=== PATIENT | male | born 1990 | race Two or more races ===

== ENCOUNTER 2023-09-22 00:29 | Emergency (ER) | payer BC, OTHER ==
[~2023-09-22] VITALS: Ht 165.1 cm; Wt 80.9 kg
[2023-09-22 01:18] LABS: Urine Bacteria None Seen /hpf (None Seen)
[2023-09-22 01:26] LABS: Urine Blood TRACE /uL (Negative); Urine Clarity Clear (Clear); Urine Color Colorless (Yellow); Urine Protein, UAD Negative (Negative); Urine Specific Gravity 1.006 (1.001-1.035); Urine Urobilinogen Normal (Negative); Urine WBC 1 /hpf (0 - 3)
[2023-09-22 01:37] LABS: INR 1.05 (0.9-1.15); Prothrombin Time 11.1 sec (9.3-11.8)
[2023-09-22 01:58] LABS: Basophils # (auto) 0.1 10 ^3/uL (0-0.2); Basophils % (auto) 0.7 % (0.0-2.0); Eosinophils # (auto) 0.3 10 ^3/uL (0-0.8); Eosinophils % (auto) 3.4 % (0.0-7.0); Hematocrit 45.5 % (41.0-53.0); Hemoglobin 15.2 g/dL (13.5-17.5); Lymphocytes # (auto) 2.5 10 ^3/uL (0.4-5.4); Lymphocytes % (auto) 25.6 % (10.0-50.0); Mean Corpuscular Hemoglobin 28.6 pg (28.0-32.0); Mean Corpuscular Hgb Conc. 33.3 g/dL (32.0-36.0); Monocytes # (auto) 0.6 10 ^3/uL (0-1.3); Monocytes % (auto) 5.8 % (0.0-12.0); Neutrophils # (auto) 6.4 10 ^3/uL (1.6-8.6); Neutrophils % (auto) 64.5 % (37.0-80.0); Red Blood Cells 5.29 10^6/uL (4.5-5.90); Red Cell Distribution Width 13.6 % (11.8-14.3); White Blood Cell 9.9 10^3/uL (4.4-10.8)
[2023-09-22 02:08] LABS: Chloride 110 mmol/L (98-107); Potassium 3.8 mmol/L (3.5-5.1); Sodium 142 mmol/L (136-145)
[2023-09-22 02:09] LABS: Anion Gap 5 (5-15); Carbon Dioxide 27 mmol/L (20-30)
[2023-09-22 02:10] LABS: Calcium 9.1 mg/dL (8.7-10.4)
[2023-09-22 02:14] LABS: Glucose 124 mg/dL (74-106)
[2023-09-22 02:15] LABS: Blood Urea Nitrogen 12 mg/dL (9-23)
[2023-09-22 03:30] VITALS: PULSE 74; RESP 11; O2SAT 96
[2023-09-22] MEDS: MORPHINE SULFATE 4 MG/ML SYR/VIAL IV ONE (03:57)
[2023-09-22] MEDS: ONDANSETRON HCL 4 MG/2 ML VIAL IV ONE ×2 (03:57→05:57)
[2023-09-22] MEDS: HYDROmorphone HCL 2 MG/ML VL/or syr IV ONE (05:57)
[2023-09-22 06:49] VITALS: BP 99/61; PULSE 73; RESP 11; TEMP 97.7; O2SAT 96
== END 2023-09-22 03:53 | disposition home or self-care (01) ==
LOC: ER 00:29
DX: S39.840A Fracture of corpus cavernosum penis, initial encounter (principal); J45.909 Unspecified asthma, uncomplicated; X58.XXXA Exposure to other specified factors, initial encounter; Y93.89 Activity, other specified; Y92.89 Other specified places as the place of occurrence of the external cause; Y99.8 Other external cause status
CPT/HCPCS: 36415; 80048; 81001; 85025; 85610; 85730; 96374; 96375; 96376; 99285; J1170; J2270; J2405

== ENCOUNTER 2024-10-10 11:48 | Emergency (ER) | payer BC ==
[~2024-10-10] VITALS: Ht 165.1 cm; Wt 74.7 kg
[2024-10-10 13:36] VITALS: BP 128/78; PULSE 64; RESP 18; TEMP 98.1; O2SAT 97
--- NOTE | 2024-10-10 13:46 | ED.PDOC ---
History of Present Illness HPI Comments A 34 year old male presents to the ED c/o anxiety. Patient states he began to feel anxious and shaky today while he was at home. Patient notes that he has been under a lot of stress recently due to losing his job and having it go to court multiple times which has been worsening his anxiety. Denies SI, HI, fever, SOB, chest pain, abdominal pain, nausea, vomiting, diarrhea, headache, dizziness, vision changes, or numbness/tingling of extremities. No other symptoms or modifying factors reported at this time. Patient is alert and oriented x4 and has a stable gait. Chief Complaint: Anxiety Time Seen by MD: 12:03 Primary Care Provider: NONE Reviewed Notes: Nurses Notes, Medications, Allergies Allergies: Coded Allergies: NO KNOWN ALLERGIES (Unverified , 09/22/23) Home Meds Active Scripts Hydroxyzine Hcl (Hydroxyzine Hcl) 25 Mg Tab, 1 TAB PO TIDP PRN, #14 TAB 0 Refills Prov:AJAY ALVARADO NP 10/10/24 Information Source: Patient Mode of Arrival: Ambulatory Severity: Moderate Timing: Hours Duration: Since onset, Hours Prehospital treatment: None Medication Refill: For: Other (Anxiety) Past Medical History PAST MEDICAL HISTORY: Asthma Surgical History: Denies all surgeries Family History Family History: Reviewed,noncontributory to illness Social History Smoker: Non-Smoker Alcohol: Denies ETOH Use Drugs: Denies Drug Use Lives In: Home Constitutional: denies: chills, diaphoresis, fatigue, fever, malaise, sweats, weakness, others EENTM: denies: blurred vision, double vision, ear bleeding, ear discharge, ear drainage, ear pain, ear ringing, eye pain, eye redness, hearing loss, mouth pain, mouth swelling, nasal discharge, nose bleeding, nose congestion, nose pain, photophobia, tearing, throat pain, throat swelling, voice changes, others Respiratory: denies: cough, hemoptysis, orthopnea, SOB at rest, shortness of breath, SOB with excertion, stridor, wheezing, others Cardiovascular: denies: chest pain, dizzy spells, diaphoresis, Dyspnea on exertion, edema, irregular heart beat, left arm pain, lightheadedness, palpitations, PND, syncope, others Gastrointestinal: denies: abdomen distended, abdominal pain, blood streaked bowels, constipated, diarrhea, dysphagia, difficulty swallowing, hematemesis, melena, nausea, poor appetite, poor fluid intake, rectal bleeding, rectal pain, vomiting, others Genitourinary: denies: burning, dysuria, flank pain, frequency, hematuria, incontinence, penile discharge, penile sore, pain, testicle pain, testicle swelling, urgency, others Neurological: denies: dizziness, fainting, headache, left sided numbness, left sided weakness, numbness, paresthesia, pre-existing deficit, right sided numbness, right sided weakness, seizure, speech problems, tingling, tremors, weakness, others Musculoskeletal: denies: back pain, gout, joint pain, joint swelling, muscle pain, muscle stiffness, neck pain, others Integumetry: denies: bruises, change in color, change in hair/nails, dryness, laceration, lesions, lumps, rash, wounds, others Allergic/Immunocompromised: denies: Difficulty Healing, Frequent Infections, Hives, Itching, others Hematologic/Lymphatic: denies: anemia, blood clots, easy bleeding, easy bruising, swollen glands, others Endocrine: denies: excessive hunger, excessive sweating, excessive thirst, excessive urination, flushing, intolerance to cold, intolerance to heat, unexplained weight gain, unexplained weight loss, others Psychiatric: reports: anxiety; denies: bipolar disorder, depression, hopeless, panic disorder, schizophrenia, sleepless, suicidal, others All Other Systems: Reviewed and Negative Physical Exam General Appearance: Mild Distress, Normal HEENT: Normal ENT Inspection, Pharynx Normal, TMs Normal Neck: Full Range of Motion, Non-Tender, Normal, Normal Inspection Respiratory: Chest Non-Tender, Lungs Clear, No Accessory Muscle Use, No Respiratory Distress, Normal Breath Sounds Cardiovascular: No Edema, No JVD, No Murmur, No Gallop, Normal Peripheral Pulses, Regular Rate/Rhythm Breast Exam: Deferred Gastrointestinal: No Organomegaly, Non Tender, No Pulsatile Mass, Normal Bowel Sounds, Soft Genitalia: Deferred Pelvic: Deferred Rectal: Deferred Extremities: No calf tenderness, Normal capillary refill, Normal inspection, Normal range of motion, Non-tender, No pedal edema Musculoskeletal : Apperance: Normal Neurologic: Alert, lay up operator II-XII nml as Tested, No Motor Deficits, Normal Affect, No Sensory Deficits, Other (Anxious) Cerebellar Function: Normal Reflexes: Normal Skin: Dry, Normal Color, Warm Lymphatic: No Adenopathy Was a procedure done? Was a procedure done?: No Differential Dx Considerations may include: Anxiety reaction, hyperventilation syndrome, well check X-Ray, Labs, Meds, VS Vital Signs Date Time Temp Pulse Resp B/P (MAP) Pulse Ox O2 Delivery O2 Flow Rate FiO2 10/10/24 13:36 98.1 70 18 128/78 (95) 97 98.1 10/10/24 13:36 64 18 97 Room Air 10/10/24 11:58 97.3 80 16 138/76 (96) 98 97.3 Current Medications Medications (Trade) Dose Ordered Sig/Kandi Route Start Time Stop Time Status Last Admin Lorazepam (Ativan Inj) 0.5 mg ONCE ONCE IM 10/10/24 13:30 10/10/24 13:31 DC 10/10/24 13:52 X-Ray, Labs, Meds, VS Comment A 34 year old male presents to the ED c/o anxiety that started today when he woke up. Patient arrives alert and oriented, ABC's intact, afebrile, vital signs stable, saturating well in room air Signs and symptoms are most consistent with anxiety. There appears to be no evidence of cardiac disease or arrhythmia. No evidence of hypoxia or pulmonary process. VSS. Diagnostic imaging ordered by me and results interpreted by radiology: None Labs ordered: None Patient was given: Ativan 0.5 mg IM. Tolerated medications with no adverse reaction. History and physical consistent panic attack After reassessing patient. Symptoms improved significantly Vital signs stable May consider brown paper bag or facemask for rebreathing. Discussed lifestyle modification Getting enough sleep/meditating/staying active and exercising/eating healthy diet Lifestyle changes can be an effective way to relieve some of the stress and anxiety patient may cope with everyday. Most of the natural remedies consist of caring for the body, participating in healthy activities, and eliminating unhealthy ones Provided patient with mental health information and encouraged patient to speak with the therapist and psychologist Patient denies suicidal/homicidal ideation and auditory/visual hallucination Advised patient to notify a provider call urgent mental health services if symptoms recur or worsen Patient verbalized understanding Additional MDM Review of External, Non-ED records: External records reviewed. Discussion with independent historian (EMS, family) history obtained from the patient/parents (if applicable) at bedside Chronic conditions affecting care: None Social determinants of health affecting care: None Consideration of admission (observation or admission): I considered escalation of care to admission for this patient, however given the reassuring workup, the patient is safe for outpatient management. Discussion with the Radiology: No Tests considered but not performed: none Prescription medication considered and given: Vistaril 25 mg TID Time of 1ST Reevaluation: 14:00 Reevaluation 1ST: Improved Patient Education/Counseling: Diagnosis, Treatment, Need For Follow Up Family Education/Counseling: Diagnosis, Treatment, Need For Follow Up Departure 1 Departure Time of Disposition: 14:49 Impression: Primary Impression: Adjustment disorder Qualified Codes: F43.22 - Adjustment disorder with anxiety Disposition: 01 HOME / SELF CARE / HOMELESS Condition: Stable Additional Instructions: Follow-up with PCP in 1-2 days. Take medications as prescribed. Return to ED for any new or worsening symptoms. e-Prescriptions Hydroxyzine Hcl (Hydroxyzine Hcl) 25 Mg Tab 1 TAB PO TIDP PRN, #14 TAB 0 Refills Prov: AJAY ALVARADO NP 10/10/24 Discharged With: Self Critical Care Note Critical Care Time?: No Stability Stability form required: No Heart Score Heart Score: Heart Score Response (Comments) Value History N/A 0 EKG N/A 0 Age N/A 0 Risk Factors N/A 0 Troponin N/A 0 Total 0 I personally scribed for AJAY ALVARADO [employer] LOAN INTERVIEWER (JOSE ELIAS) on 10/10/24 at 13:46. Electronically submitted by Fabian Poole ([employer]). I personally scribed for AJAY ALVARADO M[employer] LOAN INTERVIEWER (JOSE ELIAS) on 10/10/24 at 13:52. Electronically submitted by Fabian Poole ([employer]). I personally scribed for AJAY ALVARADO NP ([facility]) on 10/10/24 at 15:00. Electronically submitted by Fabian Poole ([employer]). AJAY ALVARADO NP Oct 10, 2024 13:46
[2024-10-10] MEDS: LORazepam 2MG/ML-1ML VIAL IM ONE (13:52)
[2024-10-10] MEDS ORDERED: HYDR-3682 PO (14:49)
== END 2024-10-10 14:54 | disposition home or self-care (01) ==
LOC: ER 11:48
DX: F43.22 Adjustment disorder with anxiety (principal); J45.909 Unspecified asthma, uncomplicated
CPT/HCPCS: 96372; 99283; J2060

== ENCOUNTER 2025-03-04 08:37 | Outpatient (CLI) | payer BC ==
[~2025-03-04 08:37] MED LIST: HYDR-3682 PO
[2025-03-04 08:58] LABS: Hematocrit 44.7 % (41.0-53.0); Hemoglobin 15.1 g/dL (13.5-17.5); Mean Corpuscular Hemoglobin 28.5 pg (28.0-32.0); Mean Corpuscular Volume 84.6 fL (80.0-100.0); Nucleated Red Blood Cells % 0.1 %
[2025-03-04 09:49] LABS: Alanine Aminotransferase 23 U/L (7-40); Albumin 4.4 g/dL (3.2-4.8); Alkaline Phosphatase 84 U/L (46-116); Anion Gap 8 (5-15); BUN/Creatinine Ratio 15.4 (10.0-20.0); Bilirubin, Total 0.3 mg/dL (0.2-1.0); Blood Urea Nitrogen 12 mg/dL (9-23); Calcium 9.1 mg/dL (8.7-10.4); Carbon Dioxide 27 mmol/L (20-31); Chloride 106 mmol/L (98-107); Cholesterol 126 mg/dL (< 200); HDL Cholesterol 53 mg/dL (40-59); Potassium 4.7 mmol/L (3.5-5.1); Sodium 141 mmol/L (136-145); Total Protein 6.9 g/dL (5.7-8.2); Triglycerides 95 mg/dL (< 150)
[2025-03-04 09:51] LABS: Glucose 112 mg/dL (74-106)
[2025-03-04 11:41] LABS: Hepatitis A Total Antibody Positive (Negative)
[2025-03-04 11:42] LABS: Hepatitis B Surface Antigen Negative (Negative); Hepatitis C Antibody Negative (Negative)
== END 2025-03-04 17:00 | disposition home or self-care (01) ==
LOC: LAB 08:37
PROVIDERS: ATTEND Licensed Practical Nurse
DX: E55.9 Vitamin D deficiency, unspecified (principal); Z13.29 Encounter for screening for other suspected endocrine disorder; Z00.01 Encounter for general adult medical examination with abnormal findings
CPT/HCPCS: 36415; 80053; 80061; 82043; 82306; 83036; 84443; 85025; 86704; 86706; 86708; 86803; 87340